=== PATIENT | male | born 1970 | race African-American/Black ===

== ENCOUNTER 2016-11-12 23:22 | Emergency (ER) | payer BC | END 2016-11-13 01:44 | disposition left against medical advice (07) | LOC: ER1 23:22 | DX: Z53.21 Procedure and treatment not carried out due to patient leaving prior to being seen by health care provider (principal) ==

== ENCOUNTER 2016-11-13 12:16 | Emergency (ER) | payer BC | END 2016-11-13 13:55 | disposition home or self-care (01) | LOC: ER1 12:16 | DX: S61.411A Laceration without foreign body of right hand, initial encounter (principal); F17.210 Nicotine dependence, cigarettes, uncomplicated; W25.XXXA Contact with sharp glass, initial encounter | CPT/HCPCS: 12001; 90471; 90714; 96372; 99283; J0690 ==

== ENCOUNTER 2022-02-17 13:00 | Emergency (ER) | payer OTHER ==
[2022-02-17] MEDS ORDERED: CEPHALEXIN500 MG PO (13:50)
== END 2022-02-17 13:55 | disposition home or self-care (01) ==
LOC: ER1 13:00
DX: R59.0 Localized enlarged lymph nodes (principal); F17.200 Nicotine dependence, unspecified, uncomplicated
CPT/HCPCS: 99283